=== PATIENT | female | born 1960 | race Caucasian/White ===

== ENCOUNTER 2016-12-04 08:17 | Emergency (ER) | payer OTHER ==
[2016-12-04] MEDS ORDERED: SODIUM CHLORIDE 0.9% 1,000 ML IV STA (08:40)
--- NOTE | 2016-12-04 08:43 | ED ---
General Adult HPI - General Chief complaint: Abdominal Pain Stated complaint: abdominal pain Time Seen by Provider: 12/04/16 08:28 Source: patient, RN notes reviewed Mode of arrival: ambulatory Limitations: no limitations - History of Present Illness Initial comments: Patient 56-year-old female who presents emergency room today with a chief complaint of abdominal pain over the past several months. She does admit that she's follow-up the family doctor had a CAT scan obtained at [facility] approximately one month ago. States that they did see something at the transition point from the small bowel to the large bowel intestines. She states she is scheduled to see a surgeon on December 25 she states pain seems to be increasing and symptoms are getting worse. Patient mitts that she is been experiencing discomfort in the right lower quadrant. She states it is worse after she eats. She does admit to surgical history of complete hysterectomy. Patient also admits that she is experiencing some pain radiate down the right leg at times more recently. She denies any other complaints at this time. Patient denies any recent fever, chills, shortness of breath, chest pain, back pain, vomiting, numbness or tingling, dysuria or hematuria, constipation or diarrhea, headaches or visual changes, or any other complaints. - Related Data Home Medications Medication Instructions Recorded Confirmed Atenolol [Tenormin] 25 mg PO DAILY 12/04/16 12/04/16 Fexofenadine HCl [Keyla Allergy] 180 mg PO DAILY 12/04/16 12/04/16 Lisinopril [Zestril] 10 mg PO DAILY 12/04/16 12/04/16 Omeprazole [PriLOSEC] 40 mg PO DAILY 12/04/16 12/04/16 Polyethylene Glycol 3350 [Miralax] 17 gm PO DAILY 12/04/16 12/04/16 Simethicone [Gas-X] 125 mg PO Q8H PRN 12/04/16 12/04/16 Simvastatin [Zocor] 20 mg PO DAILY 12/04/16 12/04/16 chlordiazePOXIDE HCL [Librium] 5 mg PO DAILY 12/04/16 12/04/16 Allergies Allergy/AdvReac Type Severity Reaction Status Date / Time No Known Allergies Allergy Verified 12/04/16 08:54 Review of Systems ROS Statement: Those systems with pertinent positive or pertinent negative responses have been documented in the HPI. ROS Other: All systems not noted in ROS Statement are negative. Past Medical History Past Medical History: GERD/Reflux, Hyperlipidemia, Hypertension History of Any Multi-Drug Resistant Organisms: None Reported Past Surgical History: Hysterectomy, Tonsillectomy Past Psychological History: Depression Smoking Status: Current every day smoker Past Alcohol Use History: Heavy, Occasional Past Drug Use History: Marijuana General Exam - General Exam Comments Initial Comments: General: The patient is awake and alert, in no distress, and does not appear acutely ill. Eye: Pupils are equal, round and reactive to light, extra-ocular movements are intact. No nystagmus. There is normal conjunctiva bilaterally. No signs of icterus. Ears, nose, mouth and throat: There are moist mucous membranes and no oral lesions. Neck: The neck is supple, there is no tenderness or JVD. Cardiovascular: There is a regular rate and rhythm. No murmur, rub or gallop is appreciated. Respiratory: Lungs are clear to auscultation, respirations are non-labored, breath sounds are equal. No wheezes, stridor, rales, or rhonchi. Gastrointestinal: Soft, non-distended, non-tender abdomen without masses or organomegaly noted. There is no rebound or guarding present. No CVA tenderness. Bowel sounds are unremarkable. Musculoskeletal: Normal ROM, no tenderness. Strength 5/5. Sensation intact. Pulses equal bilaterally 2+. Neurological: A&O x 3. CN II-XII intact, There are no obvious motor or sensory deficits. Coordination appears grossly intact. Speech is normal. Skin: Skin is warm and dry and no rashes or lesions are noted. Psychiatric: Cooperative, appropriate mood & affect, normal judgment. Limitations: no limitations Course Vital Signs 12/04/16 12/04/16 08:20 10:00 Temperature 99.3 F 98.0 F Pulse Rate 90 88 Respiratory 20 16 Rate Blood Pressure 178/89 148/98 O2 Sat by Pulse 99 98 Oximetry Medical Decision Making - Medical Decision Making Case discussed in detail with attending physician Dr. Hawk. Patient reexamined at this time shows no signs of distress. Patient has been reviewed are unremarkable. Patient's ultrasound does show possible fatty liver. Results were discussed with the patient. Patient's CT from 11/05/2016 was reviewed and does show no free air or bowel obstruction. also complications or hydronephrosis. Thickening of the mucosa of the ascending colon but much less prominent than when compared to prior exam indicated of colitis. No abscess formation. Normal appendix. Thickening of the mucosa of the cecum measuring up to 7 mm. No bowel obstruction. Results were discussed with the patient. At this time patient is advised to follow-up with the surgeon also discussed about following up with her GI specialist for her symptoms. Patient advised return if any symptoms increase worsen or for any other concerns. - Lab Data Result diagrams: 12/04/16 09:00 12/04/16 09:00 Lab Results 12/04/16 12/04/16 12/04/16 Range/Units 09:00 09:00 09:00 WBC 9.9 (3.8-10.6) k/uL RBC 4.32 (3.80-5.40) m/uL Hgb 14.8 (11.4-16.0) gm/dL Hct 42.4 (34.0-46.0) % MCV 98.2 (80.0-100.0) fL MCH 34.3 (25.0-35.0) pg MCHC 34.9 (31.0-37.0) g/dL RDW 12.7 (11.5-15.5) % Plt Count 282 (150-450) k/uL Neutrophils % 77 % Lymphocytes % 15 % Monocytes % 5 % Eosinophils % 1 % Basophils % 1 % Neutrophils # 7.6 (1.3-7.7) k/uL Lymphocytes # 1.4 (1.0-4.8) k/uL Monocytes # 0.5 (0-1.0) k/uL Eosinophils # 0.1 (0-0.7) k/uL Basophils # 0.1 (0-0.2) k/uL Sodium 141 (137-145) mmol/L Potassium 4.2 (3.5-5.1) mmol/L Chloride 104 (98-107) mmol/L Carbon Dioxide 25 (22-30) mmol/L Anion Gap 12 mmol/L BUN 11 (7-17) mg/dL Creatinine 0.56 (0.52-1.04) mg/dL Est GFR (MDRD) Af Amer >60 (>60 ml/min/1.73 sqM) Est GFR (MDRD) Non-Af >60 (>60 ml/min/1.73 sqM) Glucose 111 H (74-99) mg/dL Calcium 9.8 (8.4-10.2) mg/dL Total Bilirubin 0.6 (0.2-1.3) mg/dL AST 40 H (14-36) U/L ALT 38 (9-52) U/L Alkaline Phosphatase 98 (38-126) U/L Total Protein 7.9 (6.3-8.2) g/dL Albumin 4.8 (3.5-5.0) g/dL Amylase 72 (30-110) U/L Lipase 80 (23-300) U/L Urine Color Light Yellow Urine Appearance Clear (Clear) Urine pH 5.5 (5.0-8.0) Ur Specific [place] 1.003 (1.001-1.035) Urine Protein Negative (Negative) Urine Glucose (UA) Negative (Negative) Urine Ketones Negative (Negative) Urine Blood Negative (Negative) Urine Nitrite Negative (Negative) Urine Bilirubin Negative (Negative) Urine Urobilinogen <2.0 (<2.0) mg/dL Ur Leukocyte Esterase Negative (Negative) Disposition Clinical Impression: Abdominal pain Disposition: HOME SELF-CARE Condition: Good Instructions: Abdominal Pain (ED) Additional Instructions: Please use medication as discussed. Please follow-up with family doctor in the next 2 days of symptoms have not improved. Please return to emergency room if the symptoms increase or worsen or for any other concerns. Referrals: Yash Torres MD [Primary Care Provider] - 1-2 days Ramon Oliva MD [Medical Doctor] - 1-2 days Radha Castro MD [STAFF PHYSICIAN] - 1-2 days Time of Disposition: 11:18
[2016-12-04 09:20] LABS: Basophils # (A) 0.1 k/uL (0-0.2); Basophils % (A) 1 %; CH 33.7; CHCM 34.4; Eosinophils # (A) 0.1 k/uL (0-0.7); Eosinophils % (A) 1 %; HCT 42.4 % (34.0-46.0); HDW 2.25; HGB 14.8 gm/dL (11.4-16.0); Luc # (Auto) 0.16; Luc % (Auto) 2; Lymphocytes # (A) 1.4 k/uL (1.0-4.8); Lymphocytes % (A) 15 %; MCH 34.3 pg (25.0-35.0); MCHC 34.9 g/dL (31.0-37.0); MCV 98.2 fL (80.0-100.0); Mean Platelet Volume 6.6; Monocytes # (A) 0.5 k/uL (0-1.0); Monocytes % (A) 5 %; Neutrophils # (A) 7.6 k/uL (1.3-7.7); Neutrophils % (A) 77 %; RBC 4.32 m/uL (3.80-5.40); RDW 12.7 % (11.5-15.5); WBC 9.9 k/uL (3.8-10.6)
--- NOTE | 2016-12-04 09:21 | XR ---
EXAMINATION TYPE: XR KUB DATE OF EXAM: 12/04/2016 9:14 AM CLINICAL DATA: 56-year-old female with abdominal pain, PHH COMPARISON: None FINDINGS: Lung bases are clear. No evidence for free intraperitoneal air. No dilated small bowel. Right hemicolonic air-fluid levels are noted and a few small bowel air-fluid levels in the right mid abdomen as well. No significant stool burden. Left hemipelvic phlebolith. No suspicious calcifications identified. IMPRESSION: 1. Air-fluid levels in the ascending colon and a few small air-fluid levels in the small bowel of the right mid abdomen. Correlate for regional ileus or enteritis. 2.No evidence of bowel obstruction or free intraperitoneal air.
[2016-12-04 09:22] LABS: Appearance,Urine Clear (Clear); Bilirubin,Urine Negative (Negative); Glucose,Urine (UA) Negative (Negative); Ketones,Urine Negative (Negative); Leukocyte Esterase,Urine Negative (Negative); Nitrite,Urine Negative (Negative); PH, Urine 5.5 (5.0-8.0); Protein,Urine Negative (Negative); Specific Gravity,Urine 1.003 (1.001-1.035); UA Billing (MACRO vs. MICRO) CHEM; Urobilinogen,Urine <2.0 mg/dL (<2.0)
[2016-12-04 09:31] LABS: ALT 38 U/L (9-52); AST 40 U/L (14-36); Alkaline Phosphatase 98 U/L (38-126); Amylase 72 U/L (30-110); Anion Gap 12 mmol/L; Blood Urea Nitrogen 11 mg/dL (7-17); Calcium 9.8 mg/dL (8.4-10.2); Carbon Dioxide 25 mmol/L (22-30); Chloride 104 mmol/L (98-107); Glucose 111 mg/dL (74-99); Non-African American GFR(MDRD) >60 (>60 ml/min/1.73 sqM); Potassium 4.2 mmol/L (3.5-5.1); Sodium 141 mmol/L (137-145); Total Bilirubin 0.6 mg/dL (0.2-1.3); Total Protein 7.9 g/dL (6.3-8.2)
--- NOTE | 2016-12-04 10:30 | US ---
EXAMINATION TYPE: US abdomen limited DATE OF EXAM: 12/04/2016 10:11 AM COMPARISON: NONE CLINICAL HISTORY: 56-year-old female with Pain. TECHNIQUE: Multiple sonographic images of the right upper quadrant are obtained. FINDINGS: Liver Length: 10.2 cm Gallbladder Wall: 0.1 cm CBD: 0.5 cm Right Kidney: 13.0 x 3.9 x 4.9 cm Pancreas: Partially obscured by bowel gas, tail not visualized Liver: Minimal heterogeneous echotexture could be on a technical basis. The liver does appear more h yperechoic than the adjacent right kidney. No focal lesion seen. Gallbladder: No abnormal gallbladder distention, wall thickening, pericholecystic fluid, or shadowin g calculi. Evidence for sonographic King's sign: no CBD: Within normal limits Right Kidney: Prominent in size. No hydronephrosis. IMPRESSION: Possible mild fatty infiltration of the liver. Correlate with LFTs, lipid profile, and patient risk f actors.
[2016-12-04 11:15] VITALS: BP 148/98; PULSE 88; RESP 16; TEMP 98
== END 2016-12-04 11:33 | disposition home or self-care (01) ==
LOC: MERGE 08:17 → EC 08:17
DX: R10.31 Right lower quadrant pain (principal); K21.9 Gastro-esophageal reflux disease without esophagitis; I10 Essential (primary) hypertension; E78.5 Hyperlipidemia, unspecified; F17.200 Nicotine dependence, unspecified, uncomplicated; Z79.899 Other long term (current) drug therapy
CPT/HCPCS: 36415; 74000; 76705; 80053; 81003; 82150; 83690; 85025; 96360; 96361; 99284

== ENCOUNTER 2017-01-02 11:17 | Day surgery (SDC) | payer OTHER ==
--- NOTE | 2016-12-25 17:11 | P.GSHP ---
History of Present Illness H&P Date: 01/02/17 Chief Complaint: Change in bowel habits Patient presents the office complaining of right lower quadrant abdominal pain for the last 6 months. Pain is constant and burning. Some nausea but no vomiting. Appetite is diminished. She describes bloating. She is taking MiraLAX daily. Last colonoscopy 5 years ago showed diverticulosis and polyps per the patient. She was treated by Dr. Guaman for colitis in the past.Recent CAT scan shows thickening of the cecum and descending colon. Past Medical History Past Medical History: GERD/Reflux, Hyperlipidemia, Hypertension History of Any Multi-Drug Resistant Organisms: None Reported Past Surgical History: Hysterectomy, Tonsillectomy Past Psychological History: Depression Smoking Status: Current every day smoker Past Alcohol Use History: Heavy, Occasional Past Drug Use History: Marijuana Medications and Allergies Home Medications Medication Instructions Recorded Confirmed Type Atenolol [Tenormin] 25 mg PO DAILY 12/04/16 12/04/16 History Fexofenadine HCl [Keyla Allergy] 180 mg PO DAILY 12/04/16 12/04/16 History Lisinopril [Zestril] 10 mg PO DAILY 12/04/16 12/04/16 History Omeprazole [PriLOSEC] 40 mg PO DAILY 12/04/16 12/04/16 History Polyethylene Glycol 3350 [Miralax] 17 gm PO DAILY 12/04/16 12/04/16 History Simethicone [Gas-X] 125 mg PO Q8H PRN 12/04/16 12/04/16 History Simvastatin [Zocor] 20 mg PO DAILY 12/04/16 12/04/16 History chlordiazePOXIDE HCL [Librium] 5 mg PO DAILY 12/04/16 12/04/16 History Allergies Allergy/AdvReac Type Severity Reaction Status Date / Time No Known Allergies Allergy Verified 12/04/16 08:54 Surgical - Exam Physical exam: General: Well-developed, well-nourished HEENT: Normocephalic, sclerae nonicteric Abdomen: Mild right lower quadrant tenderness, nondistended Extremities: No edema Neuro: Alert and oriented Assessment and Plan (1) Change in bowel habits Narrative/Plan: We'll proceed with colonoscopy on 01/02. Risks of bleeding and perforation discussed with the patient. She understands and wishes to proceed. Status: Acute
[2016-12-30 08:24] VITALS: BMI 21.9
[~2017-01-02 11:17] MED LIST: LACTATED RINGERS 1,000 ML IV SCH; LIDOCAINE 1% 20 ML VIAL (10MG/ML) FOR IV START INTRADERMA PRN
[2017-01-02 11:42] VITALS: RESP 16; TEMP 98.3
[2017-01-02] MEDS ORDERED: LIDOCAINE 1% INJ 10MG/ML (20 ML MDV) ONE (11:58)
[2017-01-02] MEDS ORDERED: PROPOFOL 10 MG/ML 20 ML VIAL IV ONE (11:58)
--- NOTE | 2017-01-02 12:19 | P.PCN ---
Date of Procedure: 01/02/17 Preoperative Diagnosis: Postoperative Diagnosis: Procedure(s) Performed: PREOPERATIVE DIAGNOSIS: Change in bowel habits POSTOPERATIVE DIAGNOSIS: Ascending colon polyp 2, diverticulosis PROCEDURE: Colonoscopy with snare polypectomy ANESTHESIA: MAC SURGEON: Ramon Oliva M.D. SPECIMENS: Polyps ENDOSCOPIC PROCEDURE: The patient was placed on the endoscopy table in the left decubitus position. The Olympus colonoscope was inserted into the anus and passed under direct visualization to the base of the cecum. The appendiceal orifice was visualized. From that point the scope was slowly withdrawn inspecting all surfaces carefully. There were no neoplastic inflammatory or polypoid lesions throughout the cecum. In the ascending colon 2 separate polyps were both identified and removed using the snare with cautery technique. The remainder of the transverse descending sigmoid and rectum appeared normal. There was mild diverticulosis present. Digital rectal examination was normal. The patient was taken to the recovery room in stable condition per anesthesia guidelines. RECOMMENDATIONS: Await biopsy results. Continue workup of the patient's abdominal pain. Implants: Indications for Procedure: Operative Findings: Description of Procedure:
[2017-01-02 12:43] VITALS: BP 159/63; PULSE 77
== END 2017-01-02 13:00 | disposition home or self-care (01) ==
LOC: ORWHC2ENDO 11:17
PROVIDERS: ATTEND Surgery
DX: K63.5 Polyp of colon (principal); K57.30 Diverticulosis of large intestine without perforation or abscess without bleeding; K21.9 Gastro-esophageal reflux disease without esophagitis; I10 Essential (primary) hypertension; E78.5 Hyperlipidemia, unspecified; F17.200 Nicotine dependence, unspecified, uncomplicated; Z79.899 Other long term (current) drug therapy; Z87.19 Personal history of other diseases of the digestive system; Z90.710 Acquired absence of both cervix and uterus
CPT/HCPCS: 45385; 88305; J2001; J2704